=== PATIENT | male | born 1985 | race Caucasian/White ===

== ENCOUNTER 2024-05-06 16:47 | Emergency (ER) | payer BC, SELFPAY ==
[2024-05-06 16:52] VITALS: BP 128/66
[2024-05-06 17:24] LABS: % Basophils 0.6 % (0-2); % Eosinophils 2.3 % (0-6); % Immature Granulocytes 0.1 % (0-0.5); % Monocytes 3.9 % (1.7-9.3); % Neutrophils 71.1 % (42.2-75.2); Absolute Basophils 0.1 10^3/uL (0-0.2); Absolute Eosinophils 0.2 10^3/uL (0-0.7); Absolute Lymphocytes 1.7 10^3/uL (1.2-3.4); Absolute Monocytes 0.3 10^3/uL (0.1-0.6); Absolute Neutrophils 5.6 10^3/uL (1.4-6.5); Hematocrit 39.1 % (39.0-52.0); Hemoglobin 13.5 g/dL (13.0-18.0); Mean Corp Hgb Conc. 34.5 g/dL (33.0-37.0); Mean Corpuscular Volume 81.1 fL (80.0-94.0); Mean Platelet Volume 9.7 fL (7.4-10.4); Nucleated Red Blood Cells % 0 % (-); Platelet Count 225 10^3/uL (130-400); Red Blood Cell Count 4.82 10^6/uL (4.70-6.10); Red Cell Dist. Width 12.2 % (11.5-14.5); White Blood Cell Count 7.9 10^3/uL (4.8-10.8)
[2024-05-06 17:44] LABS: ALT (SGPT) 24 U/L (0-50); AST (SGOT) 30 U/L (17-59); Albumin 5.2 g/dl (3.5-5.0); Alkaline Phosphatase 86 U/L (38-126); Blood Urea Nitrogen 17 mg/dl (9-20); Calcium 10.2 mg/dl (8.4-10.2); Carbon Dioxide 29 mmol/L (22-30); Chloride 100 mmol/L (98-107); Glucose 93 mg/dl (70-99); Potassium 4.5 mmol/L (3.5-5.1); Sodium 139 mmol/L (135-145); Total Bilirubin 0.7 mg/dl (0.2-1.3); Total Protein 8.2 g/dl (6.3-8.2); eGFR > 60.00
[2024-05-06 18:18] VITALS: BMI 22.5
--- NOTE | 2024-05-06 18:29 | ED.GENMED ---
History of Present Illness
General
Chief Complaint: Chest Problem
Source: patient and records
Exam Limitations: none
Time Seen by Provider: 05/06/24 17:40
Nursing documentation reviewed up to this point in time: agreed with
Travel History
Have you had any contact with someone who has COVID-19?: No
Do you have any symptoms of coronavirus? Fever > 100 degrees, chills, cough, shortness of breath, sore throat, loss of taste or smell, muscle aches, or headache?: No
History of Present Illness
History of Present Illness:
Patient is a 38-year-old male who presents to the emergency department complaining of right mid back/flank pain with deep breathing for the past 24 hours. 3 days ago the patient started with mild cough, chills and nausea without vomiting or
diarrhea. Patient has a history of PE and this feels similar. Patient had been on Coumadin for 2 years before they took him off of it. It was thought that he was sedentary causing the clot. Patient does vape. Patient does feel mildly short of
breath but pain mostly occurs with deep breathing.
Past History
Past History
ED Past Medical History: Other (PE, anxiety)
ED Past Surgical History: Orthopedic
Social History
Tobacco: Vaping
Review of Systems
Review of Systems
All Other Systems: ROS reviewed and negative except as documented in HPI and ROS
Constitutional: Reports fatigue and chills; Denies fever
EENT: Reports runny nose; Denies sore throat
Respiratory: Reports cough and trouble breathing
Cardiac: Reports chest pain; Denies palpitations
ABD/GI: Reports nausea; Denies abdominal pain, vomiting, diarrhea, constipated, bloody stools or black stools
: Reports no symptoms
Musculoskeletal: Reports no symptoms
Skin: Reports no symptoms
Neurological: Reports no symptoms
Hematologic/Lymphatic: Reports no symptoms
Phy Exam
Physical Exam
Physical Exam:
Physical Exam
General: No apparent distress, alert and appropriate, well nourished, well hydrated
HENT: Normocephalic, supple with no lymphadenopathy, no thyromegaly
Eyes: Clear sclera, conjuctiva without injection
Heart: Regular rhythm and rate. No S3, S4. No murmur. No NVD
Lungs: No respiratory distress, no stridor, lung sounds clear and equal bilaterally, chest wall symmetrical and nontender
Abdomen: Soft, minimal midepigastric tenderness without guarding or rebound, no organomegaly, no CVA tenderness, BS good
Neuro: Alert and oriented x 3, CN II - XII intact, no motor focality, no cerebellar dysfunction
Skin: no rash
Psychiatric: well kept. interactive and cooperative
Extremities: No edema, cyanosis, tenderness, Good and equal peripheral pulses.
Course
Orders/Labs/Results
Orders:
Orders
05/06/24 16:53
ECG [Electrocardiogram (*1)] Urgent
Reason for Study: Chest Pain
EKG- Treatment ONCE
05/06/24 17:09
IV Insert/Care/Rem.- Treatment PRN
05/06/24 17:11
CT Chest Pe Study Urgent
Comment:
Reason For Exam: r/o PE
05/06/24 17:17
Complete Blood Count/With Diff Urgent
Comprehensive Metabolic Panel Urgent
05/06/24 18:26
Ketorolac [Toradol] 15 mg IV NOW STA
Ondansetron Injectable [Zofran] 4 mg IV NOW STA
Pantoprazole [Protonix IV] 80 mg IV NOW STA
Sucralfate [Carafate] 1 gram PO NOW STA
Abnormal Lab Results
05/06/24
17:17
Albumin 5.2 H g/dl
(3.5-5.0)
05/06/24 17:17
05/06/24 17:17
Vital Signs
Initial and Last Documented VS:
Initial Vital Signs
Temp Pulse Resp BP Pulse Ox
98.1 F 47 18 128/66 98
05/06/24 16:52 05/06/24 16:52 05/06/24 16:52 05/06/24 16:52 05/06/24 16:52
Last Documented Vital Signs
Temp Pulse Resp BP Pulse Ox
98.1 F 42 18 113/67 96
05/06/24 16:52 05/06/24 19:15 05/06/24 16:52 05/06/24 19:00 05/06/24 19:15
*Radiology
Radiology exam reviewed: radiology read reviewed (CT of the chest unremarkable)
*Pulse Oximetry
Patient hypoxic: no
*EKG
Interpreted by ED Provider?: Yes
EKG Intrepretation Date: 05/06/24
EKG Intrepretation Time: 18:35
Interpretation: abnormal
Comparison EKG: no comparison EKG present
Heart Rate: 43
Rate: bradycardiac
Rhythm: sinus
[place]: normal axis
Interval: normal interval
QRS Pattern: normal QRS
Ischemia: no ischemia
*[employer] Interpretation
Rate: bradycardiac
Interpretation: abnormal
Heart Rate: 45
Rhythm: sinus
*Critical Care Note
Total Time (30-74mins, 75-104mins- exclusive of procedures): Not Applicable
Update Note
Update Note:
Patient is feeling better. Patient will be discharged.
ED Attending Note
-
Portions of this chart may have been created with voice recognition software.� Occasional wrong word or��sound alike� substitutions may have occurred due to the inherent limitations of voice recognition software.
Discharge Plan
Departure
Patient Disposition: Home (Routine Discharge)
Date of Disposition: 05/06/24
Time of Disposition: 19:27
Patient with high blood pressure during this ER visit?: No
Condition: Good
Covid-19: Not Applicable
Discharge Problem:
Hernia, hiatal
Instructions: Hiatal Hernia (DC), Acid Reflux, Adult and Adolescent ED
Prescriptions:
New
sucralfate [Carafate] 1 gram tablet
1 g PO QID Qty: 60 0RF
pantoprazole [Protonix] 40 mg tablet,delayed release (DR/EC)
40 mg PO BID Qty: 30 0RF
Interventions
Interventions:
*General Assessment Last Done: 05/06/24 17:06
ED- Fall Risk Assessment Last Done: 05/06/24 18:18
ED- Cardiac Assessment Last Done: 05/06/24 18:18
ED- Pulmonary Assessment Last Done: 05/06/24 18:18
Discharge Date and Time
Print Language: FAROESE
[2024-05-06] MEDS: PROTONIX IV 80 MG IV (18:45)
[2024-05-06] MEDS: TORADOL 15 MG IV (18:46)
[2024-05-06] MEDS: ZOFRAN 4 MG IV (18:47)
[2024-05-06] MEDS: CARAFATE 1 GRAM PO (18:47)
[2024-05-06 19:00] VITALS: BP 113/67
== END 2024-05-06 20:07 | disposition home or self-care (01) ==
LOC: EMR 16:47
PROVIDERS: EMERGENCY PHYSICIAN Emergency Medicine; FAMILY PHYSICIAN Family Medicine
DX: K44.9 Diaphragmatic hernia without obstruction or gangrene (principal); R06.02 Shortness of breath; R53.83 Other fatigue; R11.0 Nausea; F41.9 Anxiety disorder, unspecified; F17.290 Nicotine dependence, other tobacco product, uncomplicated; Z86.711 Personal history of pulmonary embolism
CPT/HCPCS: 99285; 96374; 96375 ×2; 71275; 80053; 85025; 93005; Q9967

== ENCOUNTER → 2025-01-28 23:20 | Emergency (ER) | payer BC, SELFPAY ==
[2025-01-28 23:37] VITALS: BP 122/50
[2025-01-28 23:56] LABS: Urine Albumin Negative (Neg - Trace); Urine Bilirubin Negative (Negative); Urine Character Clear (Clear); Urine Color Yellow; Urine Glucose Negative (Negative); Urine Ketone Negative (Negative); Urine Leukocyte Negative (Negative); Urine Nitrite Negative (Negative); Urine Occult Blood Negative (Negative); Urine Specific Gravity 1.025 (<1.030); Urine Urobilinogen Negative (Neg - 1+)
[2025-01-28 23:57] LABS: % Basophils 0.6 % (0-2); % Eosinophils 4.9 % (0-6); % Immature Granulocytes 0.1 % (0-0.5); % Lymphocytes 34.2 % (20.5-51.1); % Monocytes 5.8 % (1.7-9.3); % Neutrophils 54.4 % (42.2-75.2); Absolute Eosinophils 0.3 10^3/uL (0-0.7); Absolute Lymphocytes 2.3 10^3/uL (1.2-3.4); Absolute Monocytes 0.4 10^3/uL (0.1-0.6); Absolute Neutrophils 3.7 10^3/uL (1.4-6.5); Hematocrit 41.3 % (39.0-52.0); Hemoglobin 13.6 g/dL (13.0-18.0); Mean Corp Hgb Conc. 32.9 g/dL (33.0-37.0); Mean Corpuscular Hgb 28.3 pg (27.0-31.0); Mean Platelet Volume 9.3 fL (7.4-10.4); Nucleated Red Blood Cells % 0 % (-); Platelet Count 237 10^3/uL (130-400); Red Cell Dist. Width 12.1 % (11.5-14.5); White Blood Cell Count 6.8 10^3/uL (4.8-10.8)
[2025-01-29 00:24] LABS: ALT (SGPT) 52 U/L (0-50); AST (SGOT) 34 U/L (17-59); Albumin 4.2 g/dl (3.5-5.0); Alkaline Phosphatase 109 U/L (38-126); Blood Urea Nitrogen 20 mg/dl (9-20); Calcium 9.7 mg/dl (8.4-10.2); Carbon Dioxide 35 mmol/L (22-30); Chloride 99 mmol/L (98-107); Glucose 89 mg/dl (70-99); Potassium 4.3 mmol/L (3.5-5.1); Sodium 137 mmol/L (135-145); Total Bilirubin 0.4 mg/dl (0.2-1.3); Total Protein 7.1 g/dl (6.3-8.2); eGFR > 60.00
== END | disposition left against medical advice (07) ==
LOC: EMR 23:20
PROVIDERS: EMERGENCY PHYSICIAN Student in an Organized Health Care Education/Training Program
DX: N50.812 Left testicular pain (principal); Z53.21 Procedure and treatment not carried out due to patient leaving prior to being seen by health care provider
CPT/HCPCS: 76870; 80053; 81003; 85025; 93976

== ENCOUNTER 2025-10-12 18:31 | Emergency (ER) | payer SELFPAY ==
[2025-10-12 18:40] VITALS: BP 142/77
[2025-10-12] MEDS: MOTRIN 600 MG PO (21:06)
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
== END 2025-10-12 22:13 | disposition home or self-care (01) ==
LOC: EMR 18:31
PROVIDERS: EMERGENCY PHYSICIAN Student in an Organized Health Care Education/Training Program; FAMILY PHYSICIAN Nurse Practitioner Gerontology
DX: S20.212A Contusion of left front wall of thorax, initial encounter (principal); S16.1XXA Strain of muscle, fascia and tendon at neck level, initial encounter; S60.222A Contusion of left hand, initial encounter; V43.52XA Car driver injured in collision with other type car in traffic accident, initial encounter; Y92.410 Unspecified street and highway as the place of occurrence of the external cause; F17.290 Nicotine dependence, other tobacco product, uncomplicated
CPT/HCPCS: 99284; 70450; 71046; 72125; 73130